=== PATIENT | female | born 1965 | race Caucasian/White ===

== ENCOUNTER 2016-12-30 08:40 | Observation (INO) | payer MEDICAID ==
[2016-12-30] MEDS ORDERED: ASPIRIN 81 MG CHEW PO STA (09:08)
[2016-12-30] MEDS ORDERED: SODIUM CHLORIDE 0.9% 1,000 ML IV STA (09:08)
[2016-12-30] MEDS ORDERED: NITROGLYCERIN OINT 1 INCH/GM PACKET TOPICAL STA (09:08)
--- NOTE | 2016-12-30 09:16 | ED ---
General Adult HPI - General Chief complaint: Chest Pain Stated complaint: chest pain Time Seen by Provider: 12/30/16 08:48 Source: patient, RN notes reviewed Mode of arrival: ambulatory Limitations: no limitations - History of Present Illness Initial comments: Patient is a pleasant 51-year-old female presenting to the emergency department complaining of chest discomfort. Onset of symptoms was a couple of weeks ago. Discomfort is near resolved at this time rated as a 0 or 1/10. No history of similar symptoms previously. No associated dyspnea. No associated nausea. Patient at times does have some sweating however is unclear if this is related to just hot flashes or not. Symptoms do improve with rest. Discomfort feels like tightness. There is some radiation to the neck and left shoulder. - Related Data Home Medications Medication Instructions Recorded Confirmed Aspirin/Acetaminophen/Caffeine 1 tab PO Q6H PRN 12/30/16 12/30/16 [Excedrin Migraine Caplet] DULoxetine HCL [Cymbalta] 60 mg PO DAILY 12/30/16 12/30/16 Ibuprofen [Motrin] 200 - 400 mg PO Q6HR PRN 12/30/16 12/30/16 Allergies Allergy/AdvReac Type Severity Reaction Status Date / Time Penicillins Allergy Rash/Hives Verified 12/30/16 09:23 Review of Systems ROS Statement: Those systems with pertinent positive or pertinent negative responses have been documented in the HPI. ROS Other: All systems not noted in ROS Statement are negative. Constitutional: Denies: fever Eyes: Denies: eye pain ENT: Denies: ear pain Respiratory: Denies: cough, dyspnea Cardiovascular: Reports: chest pain Endocrine: Denies: fatigue Gastrointestinal: Denies: abdominal pain Genitourinary: Denies: dysuria Musculoskeletal: Denies: back pain Skin: Denies: rash Neurological: Denies: weakness General Exam Limitations: no limitations General appearance: alert, in no apparent distress Head exam: Present: atraumatic Eye exam: Present: normal appearance, PERRL ENT exam: Present: normal oropharynx Neck exam: Present: normal inspection Respiratory exam: Present: normal lung sounds bilaterally. Absent: chest wall tenderness Cardiovascular Exam: Present: regular rate, normal rhythm Expanded Peripheral pulses: 2+: Radial (R), Radial (L), Posterior Tibialis (R), Posterior Tibialis (L) GI/Abdominal exam: Present: soft. Absent: tenderness Extremities exam: Present: normal inspection. Absent: pedal edema, calf tenderness Neurological exam: Present: alert Psychiatric exam: Present: normal affect, normal mood Skin exam: Absent: rash Course Vital Signs 12/30/16 09:13 Temperature 98 F Pulse Rate 87 Respiratory 20 Rate Blood Pressure 173/95 O2 Sat by Pulse 97 Oximetry - Reevaluation(s) Reevaluation #1: 12/30/16 10:50 Repeat EKG shows normal sinus rhythm at 80. GA 120. QRS 86. QT 410. QTc 472. Normal axis. Nonspecific T waves. Normal QRS. EKG Findings - EKG Comments: EKG Findings:: Normal sinus rhythm at 86. GA 116. QRS 90. QT 384. QTC 459. Left axis. Normal QRS. Normal ST-T. Medical Decision Making - Medical Decision Making Patient was seen by cardiology who did want repeat enzymes and echo. Case was also discussed in detail with Dr. Johnson, who will admit his patient. Patient updated. IV heparin started. Admission orders placed. Patient is chest pain- free at this time. Patient does complain of headache. - Lab Data Result diagrams: 12/30/16 09:03 12/30/16 09:03 Lab Results 12/30/16 12/30/16 12/30/16 Range/Units 09:03 09:03 09:03 WBC 9.7 (3.8-10.6) k/uL RBC 4.67 (3.80-5.40) m/uL Hgb 14.0 (11.4-16.0) gm/dL Hct 42.4 (34.0-46.0) % MCV 90.9 (80.0-100.0) fL MCH 30.0 (25.0-35.0) pg MCHC 33.0 (31.0-37.0) g/dL RDW 13.8 (11.5-15.5) % Plt Count 340 (150-450) k/uL Neutrophils % 66 % Lymphocytes % 22 % Monocytes % 6 % Eosinophils % 3 % Basophils % 1 % Neutrophils # 6.5 (1.3-7.7) k/uL Lymphocytes # 2.1 (1.0-4.8) k/uL Monocytes # 0.5 (0-1.0) k/uL Eosinophils # 0.3 (0-0.7) k/uL Basophils # 0.1 (0-0.2) k/uL PT (9.0-12.0) sec INR (<1.1) APTT (22.0-30.0) sec D-Dimer (<0.60) mg/L FEU Sodium 143 (137-145) mmol/L Potassium 4.5 (3.5-5.1) mmol/L Chloride 107 (98-107) mmol/L Carbon Dioxide 24 (22-30) mmol/L Anion Gap 12 mmol/L BUN 12 (7-17) mg/dL Creatinine 0.71 (0.52-1.04) mg/dL Est GFR (MDRD) Af Amer >60 (>60 ml/min/1.73 sqM) Est GFR (MDRD) Non-Af >60 (>60 ml/min/1.73 sqM) Glucose 120 H (74-99) mg/dL Calcium 9.7 (8.4-10.2) mg/dL Magnesium 2.0 (1.6-2.3) mg/dL Total Bilirubin 0.7 (0.2-1.3) mg/dL AST 36 (14-36) U/L ALT 36 (9-52) U/L Alkaline Phosphatase 54 (38-126) U/L Total Creatine Kinase 118 (30-135) U/L CK-MB (CK-2) 1.3 (0.0-2.4) ng/mL CK-MB (CK-2) Rel Index 1.1 Troponin I <0.012 (0.000-0.034) ng/mL Total Protein 7.0 (6.3-8.2) g/dL Albumin 4.3 (3.5-5.0) g/dL Triglycerides (<150) mg/dL Cholesterol (<200) mg/dL LDL Cholesterol, Calc (0-99) mg/dL HDL Cholesterol (40-60) mg/dL 12/30/16 12/30/16 Range/Units 09:03 09:30 WBC (3.8-10.6) k/uL RBC (3.80-5.40) m/uL Hgb (11.4-16.0) gm/dL Hct (34.0-46.0) % MCV (80.0-100.0) fL MCH (25.0-35.0) pg MCHC (31.0-37.0) g/dL RDW (11.5-15.5) % Plt Count (150-450) k/uL Neutrophils % % Lymphocytes % % Monocytes % % Eosinophils % % Basophils % % Neutrophils # (1.3-7.7) k/uL Lymphocytes # (1.0-4.8) k/uL Monocytes # (0-1.0) k/uL Eosinophils # (0-0.7) k/uL Basophils # (0-0.2) k/uL PT 10.8 (9.0-12.0) sec INR 1.1 (<1.1) APTT 24.6 (22.0-30.0) sec D-Dimer 0.28 (<0.60) mg/L FEU Sodium (137-145) mmol/L Potassium (3.5-5.1) mmol/L Chloride (98-107) mmol/L Carbon Dioxide (22-30) mmol/L Anion Gap mmol/L BUN (7-17) mg/dL Creatinine (0.52-1.04) mg/dL Est GFR (MDRD) Af Amer (>60 ml/min/1.73 sqM) Est GFR (MDRD) Non-Af (>60 ml/min/1.73 sqM) Glucose (74-99) mg/dL Calcium (8.4-10.2) mg/dL Magnesium (1.6-2.3) mg/dL Total Bilirubin (0.2-1.3) mg/dL AST (14-36) U/L ALT (9-52) U/L Alkaline Phosphatase (38-126) U/L Total Creatine Kinase (30-135) U/L CK-MB (CK-2) (0.0-2.4) ng/mL CK-MB (CK-2) Rel Index Troponin I (0.000-0.034) ng/mL Total Protein (6.3-8.2) g/dL Albumin (3.5-5.0) g/dL Triglycerides 176 H (<150) mg/dL Cholesterol 174 (<200) mg/dL LDL Cholesterol, Calc 102 H (0-99) mg/dL HDL Cholesterol 37 L (40-60) mg/dL Critical Care Time Critical Care Time: Yes Total Critical Care Time: 33 Disposition Clinical Impression: Unstable angina pectoris Disposition: ADMITTED IP TO THIS HOSP
[2016-12-30 09:31] LABS: Basophils # (A) 0.1 k/uL (0-0.2); Basophils % (A) 1 %; CH 30.8; CHCM 34.1; Eosinophils # (A) 0.3 k/uL (0-0.7); Eosinophils % (A) 3 %; HCT 42.4 % (34.0-46.0); HDW 2.45; Luc # (Auto) 0.31; Luc % (Auto) 3; Lymphocytes # (A) 2.1 k/uL (1.0-4.8); Lymphocytes % (A) 22 %; MCV 90.9 fL (80.0-100.0); Mean Platelet Volume 7.2; Monocytes # (A) 0.5 k/uL (0-1.0); Monocytes % (A) 6 %; Neutrophils # (A) 6.5 k/uL (1.3-7.7); Neutrophils % (A) 66 %; RBC 4.67 m/uL (3.80-5.40); RDW 13.8 % (11.5-15.5); WBC 9.7 k/uL (3.8-10.6); WBC (Perox) 10.23
[2016-12-30 09:36] LABS: ALT 36 U/L (9-52); AST 36 U/L (14-36); Alkaline Phosphatase 54 U/L (38-126); Anion Gap 12 mmol/L; Blood Urea Nitrogen 12 mg/dL (7-17); Calcium 9.7 mg/dL (8.4-10.2); Carbon Dioxide 24 mmol/L (22-30); Chloride 107 mmol/L (98-107); Glucose 120 mg/dL (74-99); Non-African American GFR(MDRD) >60 (>60 ml/min/1.73 sqM); Sodium 143 mmol/L (137-145); Total Bilirubin 0.7 mg/dL (0.2-1.3)
[2016-12-30 09:43] LABS: INR 1.1 (<1.1); Partial Thromboplastin Time 24.6 sec (22.0-30.0); Potassium 4.5 mmol/L (3.5-5.1); Prothrombin Time 10.8 sec (9.0-12.0)
--- NOTE | 2016-12-30 09:47 | XR ---
EXAMINATION TYPE: XR chest 2V DATE OF EXAM: 12/30/2016 9:40 AM COMPARISON: NONE HISTORY: Chest pain TECHNIQUE: Frontal and lateral views of the chest are obtained. FINDINGS: There is no focal air space opacity, pleural effusion, or pneumothorax seen. The cardiac silhouette size is within normal limits. The osseous structures are intact. IMPRESSION: No acute cardiopulmonary process.
[2016-12-30 10:07] LABS: Creatine Kinase 118 U/L (30-135)
[2016-12-30 10:20] LABS: Creatine Kinase MB 1.3 ng/mL (0.0-2.4); Troponin I <0.012 ng/mL (0.000-0.034)
--- NOTE | 2016-12-30 10:40 | P.CRDCN ---
History of Present Illness Consult date: 12/30/16 Requesting physician: Aung Reese Consult reason: chest pain Chief complaint: Chest pain History of present illness: This is a 51-year-old female with history of nicotine dependence, family history of premature coronary artery disease, who works as a registered nurse from [employer], she was noticing some midsternal chest pressure and tightness this morning, had some mild associated diaphoresis and general malaise with that. She did check her blood pressure earlier in the morning which was noted to be around 170 systolic. She states that upon wakening this morning, she felt extremely flushed mildly diaphoretic, had an episode of epistaxis, blood pressure elevated at that time as well. According to the patient, she is under significant amount of stress, no prior history of hypertension documented, no hyperlipidemia that she knows of. She went to the emergency room for further evaluation. Blood pressure on arrival there 172/90, EKG on arrival shows a normal sinus rhythm with nonspecific ST-T wave changes. Chest x-ray does not reveal any acute cardiopulmonary process. CBC normal, potassium 4.5, BUN 12, creatinine 0.7, d-dimer 0.28. BUN 12, creatinine 0.7. Magnesium level 2.0. D-dimer negative. CK-MB and troponin reported by lab to be normal. Patient was given Nitropaste, blood pressure at the time of my examination down to 120 systolic. Patient no longer complains of chest discomfort. Past Medical History Past Medical History: No Reported History History of Any Multi-Drug Resistant Organisms: None Reported Past Surgical History: No Surgical Hx Reported Past Psychological History: Depression Smoking Status: Current every day smoker Past Alcohol Use History: Occasional Past Drug Use History: None Reported Medications and Allergies Home Medications Medication Instructions Recorded Confirmed Type Aspirin/Acetaminophen/Caffeine 1 tab PO Q6H PRN 12/30/16 12/30/16 History [Excedrin Migraine Caplet] DULoxetine HCL [Cymbalta] 60 mg PO DAILY 12/30/16 12/30/16 History Ibuprofen [Motrin] 200 - 400 mg PO Q6HR PRN 12/30/16 12/30/16 History Allergies Allergy/AdvReac Type Severity Reaction Status Date / Time Penicillins Allergy Rash/Hives Verified 12/30/16 09:23 Physical Exam Vitals: Vital Signs Temp Pulse Resp BP Pulse Ox 12/30/16 09:13 98 F 87 20 173/95 97 Intake and Output 12/29/16 12/30/16 12/30/16 22:59 06:59 14:59 Other: Weight 77.111 kg Patient Weight 12/31/16 06:59 Weight 77.111 kg PHYSICAL EXAMINATION: HEENT: Head is atraumatic, normocephalic. Pupils equal, round. Neck is supple. There is no elevated jugular venous pressure. HEART EXAMINATION: Heart S1, S2 normal. No murmur or gallop heard. CHEST EXAMINATION: Lungs are clear to auscultation and precussion. No chest wall tenderness is noted on palpation or with deep breathing. ABDOMEN: Soft, nontender. Bowel sounds are heard. No organomegaly noted. EXTREMITIES: 2+ peripheral pulses with no evidence of peripheral edema and no calf tenderness noted. NEUROLOGIC patient is awake, alert and oriented -3. . Results 12/30/16 09:03 12/30/16 09:03 Cardiac Enzymes 12/30/16 12/30/16 Range/Units 09:03 09:03 AST 36 (14-36) U/L CK-MB (CK-2) 1.3 (0.0-2.4) ng/mL Troponin I <0.012 (0.000-0.034) ng/mL Coagulation 12/30/16 Range/Units 09:03 PT 10.8 (9.0-12.0) sec APTT 24.6 (22.0-30.0) sec CBC 12/30/16 Range/Units 09:03 WBC 9.7 (3.8-10.6) k/uL RBC 4.67 (3.80-5.40) m/uL Hgb 14.0 (11.4-16.0) gm/dL Hct 42.4 (34.0-46.0) % Plt Count 340 (150-450) k/uL Comprehensive Metabolic Panel 12/30/16 Range/Units 09:03 Sodium 143 (137-145) mmol/L Potassium 4.5 (3.5-5.1) mmol/L Chloride 107 (98-107) mmol/L Carbon Dioxide 24 (22-30) mmol/L BUN 12 (7-17) mg/dL Creatinine 0.71 (0.52-1.04) mg/dL Glucose 120 H (74-99) mg/dL Calcium 9.7 (8.4-10.2) mg/dL AST 36 (14-36) U/L ALT 36 (9-52) U/L Alkaline Phosphatase 54 (38-126) U/L Total Protein 7.0 (6.3-8.2) g/dL Albumin 4.3 (3.5-5.0) g/dL Current Medications Generic Name Dose Route Start Last Admin Trade Name Garryq PRN Reason Stop Dose Admin Sodium Chloride 1,000 mls @ 20 mls/hr 12/30/16 09:08 12/30/16 09:29 Saline 0.9% IV 12/31/16 09:07 20 mls/hr .Q24H STA Administration Intake and Output 12/29/16 12/30/16 12/30/16 22:59 06:59 14:59 Other: Weight 77.111 kg Patient Weight 12/31/16 06:59 Weight 77.111 kg 12/30/16 09:03 12/30/16 09:03 EKG Interpretations (text) EKG shows normal sinus rhythm with nonspecific ST-T wave changes. Assessment and Plan Plan: Assessment and plan #1 symptoms of intermittent chest pressure and tightness with associated mild diaphoresis. Initial troponin negative. EKG shows normal sinus rhythm with nonspecific ST-T wave changes. #2 accelerated hypertension, blood pressure on arrival 170/90, patient has no prior documented history of hypertension. #3 family history of premature coronary artery disease in her father and sister. #4 nicotine dependence, patient smokes one half to one pack of cigarettes per day. Plan We will obtain an echocardiogram with Doppler study. We will also check a lipid panel. Obtained to further troponins. Further recommendations to follow. DNP note has been reviewed, I agree with a documented findings and plan of care. Patient was seen and examined.
[2016-12-30 10:47] LABS: Cholesterol 174 mg/dL (<200); HDL Cholesterol 37 mg/dL (40-60); Triglycerides 176 mg/dL (<150)
--- NOTE | 2016-12-30 11:18 | ECHOF ---
Referral Reason:pain MEASUREMENTS -------- HEIGHT: 160.0 cm WEIGHT: 77.1 kg BP: 118/56 RVIDd: 3.1 cm (< 3.3) IVSd: 1.1 cm (0.6 - 1.1) LVIDd: 4.2 cm (3.9 - 5.3) LVPWd: 1.2 cm (0.6 - 1.1) IVSs: 1.8 cm LVIDs: 2.6 cm LVPWs: 1.6 cm LA Diam: 3.1 cm (2.7 - 3.8) LAESV Index (A-L): 17.73 ml/m Ao Diam: 2.9 cm (2.0 - 3.7) AV Cusp: 2.2 cm (1.5 - 2.6) MV EXCURSION: 13.666 mm (> 18.000) MV EF SLOPE: 59 mm/s (70 - 150) EPSS: 0.3 cm MV E Jim: 0.71 m/s MV DecT: 277 ms MV A Jim: 0.68 m/s MV E/A Ratio: 1.04 FINDINGS -------- Sinus rhythm. This was a technically good study. The left ventricular size is normal. There is borderline concentric left ventricular hypertrophy. Overall left ventricular systolic function is normal with, an EF between 60 - 65 %. The right ventricle is normal in size. Normal LA size by volume 22+/-6 ml/m2. The right atrium is normal in size. Aortic valve is trileaflet and is mildly thickened. Mild mitral annular calcification present. The tricuspid valve appears structurally normal. No regurgitation noted The pulmonic valve is normal. There is no pulmonic regurgitation present. The aortic root size is normal. Normal inferior vena cava with normal inspiratory collapse consistent with estimated right atrial pressure of 5 mmHg. There is no pericardial effusion. CONCLUSIONS -------- 1. Sinus rhythm. 2. The tricuspid valve appears structurally normal. 3. The pulmonic valve is normal. 4. The aortic root size is normal. 5. Normal inferior vena cava with normal inspiratory collapse consistent with estimated right atrial pressure of 5 mmHg. 6. There is no pericardial effusion. 7. This was a technically good study. 8. The left ventricular size is normal. 9. There is borderline concentric left ventricular hypertrophy. 10. Overall left ventricular systolic function is normal with, an EF between 60 - 65 %. 11. The right ventricle is normal in size. 12. Normal LA size by volume 22+/-6 ml/m2. 13. Aortic valve is trileaflet and is mildly thickened. 14. Mild mitral annular calcification present. [employer]IC: Jena Dickinson RDCS
[2016-12-30] MEDS ORDERED: NITROGLYCERIN SL TABS 0.4 MG TAB SUBLINGUAL PRN (11:20)
[2016-12-30] MEDS ORDERED: ACETAMINOPHEN TAB 500 MG TAB PO STA (11:20)
[2016-12-30] MEDS ORDERED: HEPARIN SODIUM,PORCINE 5,000 UNIT/ML 1 ML VIAL IV ONE (11:20)
[2016-12-30] MEDS ORDERED: HEPARIN SODIUM,PORCINE 5,000 UNIT/ML 1 ML VIAL IV PRN (11:20)
[2016-12-30] MEDS ORDERED: HEPARIN SODIUM,PORCINE/D5W PMX 25,000 UNIT in DEXTROSE/WATER 1 500ML.BAG IV SCH (11:30)
[2016-12-30] MEDS ORDERED: NITROGLYCERIN OINT 1 INCH/GM PACKET TOPICAL SCH (12:00)
[2016-12-30] MEDS: FAMOTIDINE 20 MG TAB PO SCH (14:51)
[2016-12-30 15:17] VITALS: RESP 16
--- NOTE | 2016-12-30 15:53 | P.HPIM ---
History of Present Illness H&P Date: 12/30/16 Chief Complaint: Chest discomfort radiating to the left shoulder This is a 51-year-old female well-known to my practice nurse of 27 years nicotine dependent. 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 Noticing some midsternal chest pain pressure tightness this morning and has had the symptoms so she says for approximately 2 weeks mild diaphoresis and general malaise. She did check her blood pressure earlier this morning was around 170s systolic. Patient states she is under a significant amount of stress no prior history of hypertension documented she has no prior history of hyperlipidemia documented. Patient was sent to the emergency room from the floor at work blood pressure on arrival was 172/90 EKG EKG on arrival showed normal sinus rhythm with nonspecific ST changes. Chest x-ray did not suggest anything acute CBC BUN/creatinine all normal, potassium normal, d-dimer normal , level normal CK and troponin initially were normal blood pressure at the time of evaluation was 120 systolic and patient no longer has chest pressure Review of Systems Ears, nose, mouth and throat: Reports as per HPI, Reports epistaxis Cardiovascular: Reports chest pain Respiratory: Reports as per HPI Gastrointestinal: Reports as per HPI, Reports dyspepsia, Reports heartburn Genitourinary: Reports as per HPI Menstruation: Reports postmenopausal Musculoskeletal: Reports as per HPI, Reports arm numbness/tingling Integumentary: Reports as per HPI Neurological: Reports as per HPI Past Medical History Past Medical History: No Reported History History of Any Multi-Drug Resistant Organisms: None Reported Past Surgical History: No Surgical Hx Reported Past Anesthesia/Blood Transfusion Reactions: No Reported Reaction Past Psychological History: Depression Smoking Status: Current every day smoker Past Alcohol Use History: Occasional Past Drug Use History: None Reported - Past Family History Father History Unknown: Yes Family Medical History: Hypertension, Myocardial Infarction (DC) Medications and Allergies Home Medications Medication Instructions Recorded Confirmed Type Aspirin/Acetaminophen/Caffeine 1 tab PO Q6H PRN 12/30/16 12/30/16 History [Excedrin Migraine Caplet] DULoxetine HCL [Cymbalta] 60 mg PO DAILY 12/30/16 12/30/16 History Ibuprofen [Motrin] 200 - 400 mg PO Q6HR PRN 12/30/16 12/30/16 History Allergies Allergy/AdvReac Type Severity Reaction Status Date / Time Penicillins Allergy Rash/Hives Verified 12/30/16 09:23 Physical Exam Osteopathic Statement: *. No significant issues noted on an osteopathic structural exam other than those noted in the History and Physical/Consult. Vitals: Vital Signs Temp Pulse Resp BP Pulse Ox 12/30/16 12:45 16 12/30/16 12:00 98 F 107 H 20 137/78 97 Intake and Output 12/30/16 12/30/16 12/30/16 06:59 14:59 22:59 Other: Voiding Method Toilet Weight 77 kg Patient Weight 12/31/16 06:59 Weight 77 kg General: [Patient awake, alert and oriented times 3. Patient in no acute distress.] HEENT: [PERRL. EOMI. No pharyngeal erythema or exudate.] Neck: [No adenopathy.] Cardiac: [Heart regular in rate and rhythm. No S3. No S4. No clicks, rubs. No murmur.] Lungs: [Clear to auscultation bilaterally.] Abdomen: [No mass. No organomegaly. Bowel sounds presnt and normoactive in all 4 quadrants.] Mild epigastric tenderness to deep palpation Extremes: [No edema no cyanosis no claudication normal pulses] : [] Musculoskeletal: [No joint erythema, edema or tenderness.] Skin: [No rash.] Neurologic: [No lateralizing deficits. CN II - XII grossly intact.] Lymphatic: [No adenopathy.] Results CBC & Chem 7: 12/30/16 09:03 12/30/16 09:03 Chest x-ray: report reviewed Thrombosis Risk Factor Assmnt - DVT/VTE Prophylaxis DVT/VTE Prophylaxis: Mechanical Prophylaxis ordered - Choose All That Apply Any of the Below Risk Factors Present?: Yes Each Factor Represents 1 point: Age 41-60 years Thrombosis Risk Factor Assessment Total Risk Factor Score: 1 Thrombosis Risk Factor Assessment Level: Low Risk Assessment and Plan (1) Unstable angina pectoris Narrative/Plan: Intermittent essential hypertension we'll start lisinopril 5 mg daily Unstable angina pectoris, cardiology has evaluated patient, stress echo was scheduled for tomorrow morning Family history of premature coronary artery disease both her father and sister History of nicotine dependence smokes 1/2-1 pack cigarettes per day Mild hyperlipidemia we will start patient on atorvastatin 20 mg daily Further troponins pending Status: Acute Time with Patient: Greater than 30
[2016-12-30 16:32] LABS: Creatine Kinase 99 U/L (30-135)
[2016-12-30 16:44] LABS: Creatine Kinase MB 0.9 ng/mL (0.0-2.4); Troponin I <0.012 ng/mL (0.000-0.034)
[2016-12-30] MEDS: LISINOPRIL 5 MG TAB PO SCH (19:50)
[2016-12-30] MEDS: ACETAMINOPHEN TAB 325 MG TAB PO PRN (19:52)
[2016-12-30] MEDS ORDERED: MELATONIN 3 MG TABLET PO SCH (21:00)
[2016-12-30 21:34] LABS: Creatine Kinase 107 U/L (30-135)
[2016-12-30 21:48] LABS: Creatine Kinase MB 1.1 ng/mL (0.0-2.4); Troponin I <0.012 ng/mL (0.000-0.034)
[2016-12-31 06:05] LABS: Mean Platelet Volume 7.7
[2016-12-31 06:18] LABS: Cholesterol 157 mg/dL (<200); HDL Cholesterol 38 mg/dL (40-60); Triglycerides 154 mg/dL (<150)
[2016-12-31] MEDS: ACETAMINOPHEN TAB 325 MG TAB PO PRN (07:15)
[2016-12-31 08:02] VITALS: TEMP 98.3
[2016-12-31] MEDS ORDERED: ASPIRIN 325 MG TAB PO SCH (09:00)
[2016-12-31] MEDS ORDERED: ATORVASTATIN 20 MG TAB PO SCH (09:00)
[2016-12-31] MEDS ORDERED: DULoxetine HCL 60 MG CAPSULE.DR PO SCH (09:00)
[2016-12-31] MEDS ORDERED: ASPIRIN-ACET-CAFF 250-250-65MG 1 EACH TAB PO PRN (09:24)
[2016-12-31] MEDS: FAMOTIDINE 20 MG TAB PO SCH (10:06)
[2016-12-31] MEDS ORDERED: ALPRAZolam 0.5 MG TAB PO PRN (10:21)
[2016-12-31] MEDS ORDERED: ATORVASTATIN 80 MG TAB PO STA (10:21)
[2016-12-31] MEDS ORDERED: NITROGLYCERIN SL TABS 0.4 MG TAB SUBLINGUAL PRN (10:21)
[2016-12-31] MEDS ORDERED: SODIUM CHLORIDE 0.9% 1,000 ML in EMPTY BAG 1 BAG IV ONE (10:21)
[2016-12-31] MEDS ORDERED: ALPRAZolam 0.25 MG TAB PO PRN (10:21)
[2016-12-31] MEDS ORDERED: ASPIRIN 325 MG TAB PO STA (10:21)
[2016-12-31] MEDS ORDERED: LIDOCAINE 2% INJ 20 MG/ML (20 ML MDV) ONE (10:26)
--- NOTE | 2016-12-31 10:27 | P.PN ---
Subjective Principal diagnosis: Chest pain This is a pleasant 51-year-old female with history of nicotine dependence, and strong family history of premature coronary artery disease who presented to the hospital with symptoms of chest discomfort. Troponins 3 have been negative. Initial EKGs showed normal sinus rhythm with no specific ST-T wave changes, EKG performed this morning showed normal sinus rhythm with anterior lateral ST-T wave changes. Blood pressure this morning 118/60 with a heart rate in the 70s. Denies any further chest pain, complaints of headache this morning. Because of the EKG changes this morning, Dr. Bose spoke with the patient recommended proceeding with cardiac catheterization. The risks and the benefits were explained to the patient in detail. This will be performed this morning. Objective - Vital Signs Vital signs: Vital Signs Temp 98.3 F 12/31/16 07:58 Pulse 70 12/31/16 07:58 Resp 16 12/31/16 07:58 BP 118/59 12/31/16 07:58 Pulse Ox 95 12/31/16 07:58 Intake & Output 12/30/16 12/31/16 12/31/16 18:59 06:59 18:59 Intake Total 444 Balance 444 Weight 77 kg Intake: Oral 444 Other: Voiding Method Toilet Toilet Toilet # Voids 1 2 - Exam PHYSICAL EXAMINATION: HEENT: Head is atraumatic, normocephalic. Pupils equal, round. Neck is supple. There is no elevated jugular venous pressure. HEART EXAMINATION: Heart S1, S2 normal. No murmur or gallop heard. CHEST EXAMINATION: Lungs are clear to auscultation and precussion. No chest wall tenderness is noted on palpation or with deep breathing. ABDOMEN: Soft, nontender. Bowel sounds are heard. No organomegaly noted. EXTREMITIES: 2+ peripheral pulses with no evidence of peripheral edema and no calf tenderness noted. NEUROLOGIC patient is awake, alert and oriented -3. . - Labs CBC & Chem 7: 12/31/16 05:29 12/30/16 09:03 Labs: Abnormal Lab Results - Last 24 Hours (Table) 12/31/16 Range/Units 05:29 Triglycerides 154 H (<150) mg/dL HDL Cholesterol 38 L (40-60) mg/dL Assessment and Plan Plan: Assessment and plan #1 symptoms of intermittent chest pressure and tightness with associated mild diaphoresis. Troponins negative 3 . First 2 EKGs showed normal sinus rhythm with nonspecific ST-T wave changes. EKG this morning shows normal sinus rhythm with anterior lateral T-wave inversion. #2 accelerated hypertension, blood pressure on arrival 170/90, patient has no prior documented history of hypertension. #3 family history of premature coronary artery disease in her father and sister. #4 nicotine dependence, patient smokes one half to one pack of cigarettes per day. Plan Echocardiogram with Doppler study revealed normal left ventricular systolic function. Patient advised to undergo cardiac catheterization. This will be performed today, further recommendations to follow. DNP note has been reviewed, I agree with a documented findings and plan of care. Patient was seen and examined.
[2016-12-31] MEDS ORDERED: fentaNYL (PF) 50 MCG/ML 2 ML AMP ONE (11:10)
[2016-12-31] MEDS ORDERED: MIDAZOLAM 2 MG/2 ML VIAL ONE (11:10)
[2016-12-31] MEDS ORDERED: diphenhydrAMINE 50 MG/ML 1 ML VIAL ONE (11:11)
[2016-12-31] MEDS ORDERED: diphenhydrAMINE 50 MG/ML 1 ML VIAL IVP ONE (11:14)
[2016-12-31] MEDS ORDERED: MIDAZOLAM 2 MG/2 ML VIAL IVP ONE (11:14)
[2016-12-31] MEDS ORDERED: fentaNYL (PF) 50 MCG/ML 2 ML AMP IV ONE (11:19)
[2016-12-31] MEDS ORDERED: LIDOCAINE 2% INJ 20 MG/ML SQ ONE ×2 (11:23)
[2016-12-31] MEDS ORDERED: SODIUM CHLORIDE 0.9% 500 ML IV ONE (11:49)
[2016-12-31] MEDS ORDERED: IOHEXOL 350 MG/ML 100 ML BOTTLE INJ ONE (11:50)
[2016-12-31] MEDS: LISINOPRIL 5 MG TAB PO SCH (12:15)
[2016-12-31] MEDS ORDERED: cloNIDine 0.1 MG/24HR PATCH 1 PATCH PATCH TRANSDERM SCH (12:15)
[2016-12-31] MEDS ORDERED: NICOTINE 14MG/24HR PATCH TRANSDERM SCH (12:30)
[2016-12-31] MEDS ORDERED: RX INFO: IV CONTRAST WAS GIVEN 1 EACH MISC MISCELLANE PRN (12:37)
[2016-12-31] MEDS ORDERED: MAG HYDROX/AL HYDROX/SIMETH 30 ML CUP PO PRN (12:52)
[2016-12-31 14:48] VITALS: BP 132/68; PULSE 70
--- NOTE | 2016-12-31 20:37 | CC ---
DATE OF SERVICE: Ms. Martinez is a 51-year-old female who was admitted through the emergency room because of the intermittent chest heaviness and hypertension. Patient was admitted for observation. Serial EKG subsequently showed evidence of T-wave inversions V3 to V6. The patient troponins were negative. This patient does have multiple risk factors with a strong family history of coronary artery disease. In view of the electrocardiographic changes, patient was recommended to have a cardiac catheterization for definitive diagnosis. PROCEDURE: The right groin was prepped and draped in the usual manner and the skin was infiltrated with 2% Xylocaine. The right femoral artery was entered using Seldinger technique. A #6 [place] sheath was placed in. Selective coronary angiography was then performed in multiple projections and the left ventricular pressures were obtained. Patient tolerated the procedure well. HEMODYNAMICS: Left ventricular end-diastolic pressure is 16 mmHg prior to angiography. No gradient was noted across the aortic valve. SELECTIVE CORONARY ANGIOGRAPHY: LEFT MAIN: Left main coronary artery is normal and patent. LEFT ANTERIOR DESCENDING CORONARY ARTERY: LAD is a good caliber blood vessel and proximal LAD has a small mild plaque with about 30% stenosis. There is a small-sized intermediate branch. CIRCUMFLEX CORONARY ARTERY: Circumflex coronary artery is a good caliber blood vessel. Gives rise to obtuse marginal branch. The circumflex coronary artery and its branches are normal. RIGHT CORONARY ARTERY: Right coronary artery is normal caliber blood vessel and gives rise to descending artery. Right coronary artery and branches are normal. FINAL IMPRESSION: This study reveals some mild coronary artery disease with about 30% stenosis in the proximal LAD. Circumflex and right coronary artery is normal. Left ventricular end-diastolic pressure is 16 mmHg. RECOMMENDATIONS: In view of this patient's multiple risk factors I will treat the patient with maximum medical therapy, Lipitor 20 mg daily. We will put her on beta claudette which will help her headache as well as labile blood pressure and baby aspirin. The patient would be evaluated with a stress test as an outpatient.
[2016-12-31] MEDS ORDERED: ATORVASTATIN 40 MG TAB PO SCH (21:00)
[2017-01-01] MEDS ORDERED: ASPIRIN 81 MG CHEW PO SCH (09:00)
--- NOTE | 2017-01-01 15:34 | P.DS ---
Providers Date of admission: 12/30/16 11:22 Expected date of discharge: 12/31/16 Attending physician: Joel Mccormack Consults: [facility] Primary care physician: Juancho Shanon [place] Hospital Course: Patient is a 51-year-old white female, patient of Dr. Mccormack in the outpatient setting, with a medical history significant for depression and nicotine dependence. Strong family history of premature cardiac disease. Patient presented through the emergency department with complaints of chest pressure ongoing for a couple weeks associated with some diaphoresis and occasional left arm numbness. Patient also had a elevated blood pressure on the day of admission. Patient was admitted for observation with consult to cardiology. Serial EKG with evidence of T-wave inversion the V3 to V6. Troponins were negative. Patient underwent heart catheterization with evidence of mild coronary artery disease with about 30% stenosis in the proximal LAD. Circumflex and right coronary artery were normal. Patient was treated with maximal medical therapy and discharged home in stable condition. Patient will follow-up with cardiology for stress test as an outpatient. Discharge diagnoses: 1. Coronary artery disease with evidence of 30% proximal stenosis to the LAD. 2. Accelerated hypertension, present on admission, resolved. 3. Family history of premature coronary artery disease. 4. Nicotine dependence. 5. Hyperlipidemia. The above impression and plan have been discussed and directed by Dr. Mccormack. Juan Antonio FERRARI acting as scribe for Dr. Mccormack. Pertinent Studies: EKG; chest x-ray; echocardiogram with Doppler Procedures: Heart catheterization Patient Condition at Discharge: Good Plan - Discharge Summary New Discharge Prescriptions: Aspirin 81 mg PO DAILY #30 chew Atorvastatin [Lipitor] 40 mg PO HS #30 tab Lisinopril [Zestril] 5 mg PO DAILY #30 tab Nitroglycerin Sl Tabs [Nitrostat] 0.4 mg SUBLINGUAL Q5M PRN #20 tab PRN Reason: Chest Pain cloNIDine 0.1 MG/24HR PATCH [Catapres-TTS] 1 patch TRANSDERM Q7D #4 patch Discharge Medication List DULoxetine HCL [Cymbalta] 60 mg PO DAILY 12/30/16 [History] Aspirin 81 mg PO DAILY #30 chew 12/31/16 [Rx] Atorvastatin [Lipitor] 40 mg PO HS #30 tab 12/31/16 [Rx] Lisinopril [Zestril] 5 mg PO DAILY #30 tab 12/31/16 [Rx] Melatonin 3 mg PO HS tablet 12/31/16 [Rx] Nitroglycerin Sl Tabs [Nitrostat] 0.4 mg SUBLINGUAL Q5M PRN #20 tab 12/31/16 [Rx ] cloNIDine 0.1 MG/24HR PATCH [Catapres-TTS] 1 patch TRANSDERM Q7D #4 patch [Rx] Follow up Appointment(s)/Referral(s): [facility] [Provider Group] - 1 Week (patient to make appointment for site check in one week with Dr. Bose) Juancho Claudio MD [Primary Care Provider] - 1-2 days Patient Instructions/Handouts: Chest Pain (DC) Activity/Diet/Wound Care/Special Instructions: Cardiology to schedule outpatient stress test Discharge Disposition: HOME SELF-CARE
[2017-01-05 05:34] LABS: Lipoprotein A 5 mg/dL (0-30)
[2017-01-06 12:50] LABS: Mis test requested (Blood) NMR LIPOPROFILE
== END 2016-12-31 16:10 | disposition home or self-care (01) ==
LOC: EC 08:40 → 3OBS 11:22
PROVIDERS: ADMIT Family Medicine; ATTEND Family Medicine
DX: I25.110 Atherosclerotic heart disease of native coronary artery with unstable angina pectoris (principal); I10 Essential (primary) hypertension; E78.5 Hyperlipidemia, unspecified; F17.210 Nicotine dependence, cigarettes, uncomplicated; F32.9 Major depressive disorder, single episode, unspecified; Z82.49 Family history of ischemic heart disease and other diseases of the circulatory system; Z79.899 Other long term (current) drug therapy; Z88.0 Allergy status to penicillin
CPT/HCPCS: 99291; 36415; 93005; 93306; 93458; 83695; 85379; 80061 ×2; 80053; 82550; 82553; 83735; 84484; 85025; 85049; 85610; 85730 ×2; 83704; 71020; G0378 ×2; C1760; C1894; C1769; J2001; J2250; J1200; Q9967; J3010

== ENCOUNTER → 2018-03-04 | Outpatient (CLI) | payer MEDICAID ==
[2018-03-04 08:11] LABS: Basophils # (A) 0.1 k/uL (0-0.2); Basophils % (A) 1 %; Eosinophils # (A) 0.4 k/uL (0-0.7); Eosinophils % (A) 4 %; HGB 14.4 gm/dL (11.4-16.0); Lymphocytes # (A) 3.1 k/uL (1.0-4.8); Lymphocytes % (A) 31 %; MCHC 34.2 g/dL (31.0-37.0); MCV 87.7 fL (80.0-100.0); Mean Platelet Volume 7.1; Monocytes # (A) 0.6 k/uL (0-1.0); Monocytes % (A) 6 %; Neutrophils # (A) 5.5 k/uL (1.3-7.7); Neutrophils % (A) 55 %; Platelet Count 339 k/uL (150-450); RBC 4.79 m/uL (3.80-5.40); RDW 13.2 % (11.5-15.5); WBC 9.9 k/uL (3.8-10.6)
[2018-03-04 08:29] LABS: ALT 36 U/L (9-52); AST 26 U/L (14-36); Albumin 4.3 g/dL (3.5-5.0); Alkaline Phosphatase 70 U/L (38-126); Blood Urea Nitrogen 16 mg/dL (7-17); Calcium 9.8 mg/dL (8.4-10.2); Carbon Dioxide 26 mmol/L (22-30); Cholesterol 146 mg/dL (<200); Glucose 101 mg/dL (74-99); HDL Cholesterol 38 mg/dL (40-60); LDL Cholesterol,Calculated 80 mg/dL (0-99); Potassium 4.4 mmol/L (3.5-5.1); Sodium 145 mmol/L (137-145); Total Bilirubin 0.3 mg/dL (0.2-1.3); Total Protein 6.5 g/dL (6.3-8.2); Triglycerides 142 mg/dL (<150)
[2018-03-04 08:31] LABS: Anion Gap 11 mmol/L; Chloride 108 mmol/L (98-107)
== END | disposition home or self-care (01) ==
LOC: LABWHC1 07:47
PROVIDERS: ATTEND Family Medicine
DX: E78.2 Mixed hyperlipidemia (principal); I20.9 Angina pectoris, unspecified; I10 Essential (primary) hypertension; F33.1 Major depressive disorder, recurrent, moderate
CPT/HCPCS: 36415; 80053; 80061; 84443; 85025

== ENCOUNTER → 2018-11-23 | Outpatient (CLI) | payer MEDICAID ==
[2018-11-23 08:54] LABS: Basophils # (A) 0.1 k/uL (0-0.2); Basophils % (A) 1 %; Eosinophils # (A) 0.3 k/uL (0-0.7); Eosinophils % (A) 3 %; HCT 42.2 % (34.0-46.0); Lymphocytes # (A) 3.2 k/uL (1.0-4.8); Lymphocytes % (A) 33 %; MCHC 33.2 g/dL (31.0-37.0); MCV 90.4 fL (80.0-100.0); Mean Platelet Volume 7.3; Monocytes # (A) 0.5 k/uL (0-1.0); Monocytes % (A) 5 %; Neutrophils # (A) 5.5 k/uL (1.3-7.7); Neutrophils % (A) 56 %; Platelet Count 337 k/uL (150-450); RBC 4.67 m/uL (3.80-5.40); RDW 13.8 % (11.5-15.5); WBC 9.9 k/uL (3.8-10.6)
[2018-11-23 15:55] LABS: Anion Gap 6.1 mmol/L (4.00-12.00); Calcium 9.3 mg/dL (8.7-10.3); Carbon Dioxide 28.9 mmol/L (21.6-31.8); LDL Cholesterol,Calculated 78.6 mg/dL (0.0-131.0); VLDL Calculation 44.4 mg/dL (5.00-40.00)
== END | disposition home or self-care (01) ==
LOC: LABWHC1 08:31
PROVIDERS: ATTEND Family Medicine
DX: M79.7 Fibromyalgia (principal); I10 Essential (primary) hypertension; F33.1 Major depressive disorder, recurrent, moderate; R10.84 Generalized abdominal pain
CPT/HCPCS: 36415; 80048; 80061; 84443; 84450; 84460; 85025

== ENCOUNTER 2018-12-09 09:59 | Day surgery (SDC) | payer MEDICAID ==
[2018-12-08 08:36] VITALS: BMI 28.3
[~2018-12-09 09:59] MED LIST: LACTATED RINGERS 1,000 ML IV SCH
[2018-12-09 10:37] VITALS: TEMP 97.1
[2018-12-09] MEDS ORDERED: PROPOFOL 10 MG/ML 20 ML VIAL IV ONE (10:57)
[2018-12-09] MEDS ORDERED: LIDOCAINE 1% INJ 10MG/ML (20 ML MDV) ONE (10:57)
--- NOTE | 2018-12-09 11:29 | P.OP ---
Date of Procedure: 12/09/18 Preoperative Diagnosis: Screening Colonoscopy Postoperative Diagnosis: Sigmoid polyp Rectal Polyp Anesthesia: MAC Surgeon: Zaire Ortez Estimated Blood Loss (ml): 1 Condition: stable Disposition: same day Description of Procedure: Patient is brought Endo suite timeout was performed correct patient correct procedure correct site was verified. Rectal exam was performed no gross abnormalities are noted scope was placed in the rectum of the cecum with ease there was a prominent ileocecal valve noted biopsy was taken the scope was slowly withdrawn being sure to visualize all [place] of the colon on the way out there is a sigmoid polyp noted it was removed via snare polypectomy. There was also a larger rectal polyp noted this was pedunculated it was removed also via snare polypectomy there was a small amount left noted at the base and the base was removed via snare polypectomy to what appeared to be clean margins. This was all a 12 cm. No other abnormalities are noted specimens were sent to pathology patient will need a repeat colonoscopy likely in 3-5 years pending pathology there are no apparent complications
[2018-12-09 11:44] VITALS: RESP 16
[2018-12-09 12:21] VITALS: BP 136/79; PULSE 56
== END 2018-12-09 12:40 | disposition home or self-care (01) ==
LOC: ORWHC2ENDO 09:59
PROVIDERS: ATTEND Student in an Organized Health Care Education/Training Program
DX: K63.5 Polyp of colon (principal); D12.8 Benign neoplasm of rectum; Z83.79 Family history of other diseases of the digestive system; Z79.82 Long term (current) use of aspirin; Z79.899 Other long term (current) drug therapy; Z88.0 Allergy status to penicillin; I10 Essential (primary) hypertension; E78.5 Hyperlipidemia, unspecified
CPT/HCPCS: 88305; 45380; 45385; J2001; J2704